=== PATIENT | male | born 1975 | race African-American/Black ===

== ENCOUNTER 2017-11-08 21:51 | Emergency (ER) | payer SELFPAY ==
[~2017-11-08] VITALS: Ht 182.9 cm; Wt 101.0 kg
[~2017-11-08 21:51] MED LIST: ERYT1O EACH EYE
[2017-11-08 22:28] VITALS: BP 131/83; PULSE 95; RESP 16; TEMP 98.4; O2SAT 98
[2017-11-09 01:02] VITALS: BP 132/83; PULSE 85; RESP 16; O2SAT 99
[2017-11-09 01:15] LABS: AUTOMATED NEUTROPHIL # 4.4 TH/MM3 (1.8-7.7); BASOPHIL # 0.1 TH/MM3 (0-0.2); BASOPHIL % 0.7 % (0.0-2.0); EOSINOPHIL # 0.1 TH/MM3 (0-0.4); EOSINOPHIL % 1.1 % (0.0-4.0); HEMATOCRIT 47.2 % (39.0-51.0); HEMOGLOBIN 15.4 GM/DL (13.0-17.0); LYMPH % 41.5 % (9.0-44.0); LYMPHOCYTE # 3.8 TH/MM3 (1.0-4.8); MEAN CELL VOLUME 88.3 FL (80.0-100.0); MEAN CORPUSCULAR HEMOGLOBIN 28.8 PG (27.0-34.0); MEAN CORPUSCULAR HGB CONC 32.7 % (32.0-36.0); MEAN PLATELET VOLUME 6.5 FL (7.0-11.0); MONOCYTE # 0.7 TH/MM3 (0-0.9); NEUT % 48.7 % (16.0-70.0); PLATELET COUNT 402 TH/MM3 (150-450); RED BLOOD COUNT 5.35 MIL/MM3 (4.50-5.90); RED CELL DISTRIBUTION WIDTH 14.5 % (11.6-17.2); WHITE BLOOD COUNT 9.1 TH/MM3 (4.0-11.0)
[2017-11-09] MEDS ORDERED: ALUMINUM/MAGNESIUM/SIMETH 30 ML CUP PO ONE (01:30)
[2017-11-09] MEDS ORDERED: LIDOCAINE VISCOUS 2% SOLN 15 ML UDC PO ONE (01:30)
[2017-11-09] MEDS ORDERED: SODIUM CHLORIDE 0.9% FLUSH 10 ML FLUSH IV FLUSH PRN (01:30)
[2017-11-09] MEDS ORDERED: ONDANSETRON ODT 4 MG TAB PO ONE (01:30)
[2017-11-09 01:48] LABS: BICARBONATE 26.2 MEQ/L (21.0-32.0); CALCIUM 9.1 MG/DL (8.5-10.1); CREATININE 1.56 MG/DL (0.60-1.30)
[2017-11-09 02:00] VITALS: BP 137/80; PULSE 76; RESP 16; O2SAT 98
[2017-11-09] MEDS ORDERED: SODIUM CHLOR 0.9% 1000 ML INJ 1,000 ML IV ONE (02:30)
[2017-11-09 04:00] VITALS: BP 140/60; PULSE 80; RESP 16; O2SAT 96
[2017-11-09] MEDS ORDERED: REGL10TA5 PO (04:33)
[2017-11-09] MEDS ORDERED: FAMO1TAB37 PO (04:33)
--- NOTE | 2017-11-09 04:33 | PD ---
HPI Chief Complaint: Abdominal Pain Time Seen by Provider: 01:06 Travel History International Travel<30 days: No Contact w/Intl Traveler<30days: No Traveled to known affect area: No History of Present Illness HPI Patient ate a bad potato that he said have mold on it and he he has severe nausea made himself vomit and comes in with severe burning in his epigastrium but he up his esophagus he did not take any medications to alleviate in the ER he is given a GI cocktail which alleviates all his symptoms. [facility] Past Medical History Diminished Hearing: No Immunizations Current: Yes Tetanus Vaccination: < 5 Years Influenza Vaccination: No Social History Alcohol Use: No Tobacco Use: Yes Substance Use: No Allergies-Medications (Allergen,Severity, Reaction): Coded Allergies: No Known Allergies (Verified Adverse Reaction, Unknown, 11/08/17) Reported Meds & Prescriptions Reported Meds & Active Scripts Active No Active Prescriptions or Reported Medications Review of Systems Except as stated in HPI: all other systems reviewed are Neg Gastrointestinal: Positive: Nausea, Vomiting Physical Exam Narrative GENERAL: epigastric pain SKIN: Warm and dry. HEAD: Atraumatic. Normocephalic. EYES: Pupils equal and round. No scleral icterus. No injection or drainage. ENT: No nasal bleeding or discharge. Mucous membranes pink and moist. NECK: Trachea midline. No JVD. CARDIOVASCULAR: Regular rate and rhythm. RESPIRATORY: No accessory muscle use. Clear to auscultation. Breath sounds equal bilaterally. GASTROINTESTINAL: Abdomen epigastric pain MUSCULOSKELETAL: Extremities without clubbing, cyanosis, or edema. No obvious deformities. NEUROLOGICAL: Awake and alert. No obvious cranial nerve deficits. Motor grossly within normal limits. Five out of 5 muscle strength in the arms and legs. Normal speech. PSYCHIATRIC: Appropriate mood and affect; insight and judgment normal. Data Data Last Documented VS Vital Signs Date Time Temp Pulse Resp B/P (MAP) Pulse Ox O2 Delivery O2 Flow Rate FiO2 11/09/17 04:00 80 16 140/60 (86) 96 Room Air 11/08/17 22:28 98.4 Orders Orders Complete Blood Count With Diff (11/09/17 01:01) Basic Metabolic Panel (Bmp) (11/09/17 01:01) Iv Access Insert/Monitor (11/09/17 01:01) Iv Access Insert/Monitor (11/09/17 01:26) Ecg Monitoring (11/09/17 01:26) Oximetry (11/09/17 01:26) Sodium Chloride 0.9% Flush (Ns Flush) (11/09/17 01:30) Al-Mag Hy-Si 40-40-4 Mg/Ml Liq (Mag-Al P (11/09/17 01:30) Lidocaine 2% Viscous (Xylocaine 2% Visco (11/09/17 01:30) Ondansetron Odt (Zofran Odt) (11/09/17 01:30) Sodium Chlor 0.9% 1000 Ml Inj (Ns 1000 M (11/09/17 02:30) Labs Laboratory Tests Test 11/09/17 01:00 White Blood Count 9.1 TH/MM3 Red Blood Count 5.35 MIL/MM3 Hemoglobin 15.4 GM/DL Hematocrit 47.2 % Mean Corpuscular Volume 88.3 FL Mean Corpuscular Hemoglobin 28.8 PG Mean Corpuscular Hemoglobin Concent 32.7 % Red Cell Distribution Width 14.5 % Platelet Count 402 TH/MM3 Mean Platelet Volume 6.5 FL Neutrophils (%) (Auto) 48.7 % Lymphocytes (%) (Auto) 41.5 % Monocytes (%) (Auto) 8.0 % Eosinophils (%) (Auto) 1.1 % Basophils (%) (Auto) 0.7 % Neutrophils # (Auto) 4.4 TH/MM3 Lymphocytes # (Auto) 3.8 TH/MM3 Monocytes # (Auto) 0.7 TH/MM3 Eosinophils # (Auto) 0.1 TH/MM3 Basophils # (Auto) 0.1 TH/MM3 CBC Comment DIFF FINAL Differential Comment Blood Urea Nitrogen 14 MG/DL Creatinine 1.56 MG/DL Random Glucose 93 MG/DL Calcium Level 9.1 MG/DL Sodium Level 139 MEQ/L Potassium Level 5.5 MEQ/L Chloride Level 107 MEQ/L Carbon Dioxide Level 26.2 MEQ/L Anion Gap 6 MEQ/L Estimat Glomerular Filtration Rate 59 ML/MIN MDM Medical Decision Making Medical Screen Exam Complete: Yes Emergency Medical Condition: Yes Medical Record Reviewed: Yes Differential Diagnosis pt has epigastric pain from eating a possible potato versus nausea causing vomit causing acid reflux versus GERD versus gallbladder disease versus pancreatitis versus other Narrative Course Patient is given a GI cocktail and a liter of fluid he feels much better when I wake him to evaluate reexamine he does as I want to go home I feel good I want to go home Diagnosis Primary Impression: GERD (gastroesophageal reflux disease) Qualified Codes: K21.9 - Gastro-esophageal reflux disease without esophagitis Patient Instructions: Gastritis (ED), General Instructions Scripts Famotidine (Pepcid) 20 Mg Tab 20 MG PO BID, #20 TAB 0 Refills Prov: Drew English MD 11/09/17 Metoclopramide (Reglan) 10 Mg Tab 10 MG PO QID, #20 TAB 0 Refills Prov: Drew English MD 11/09/17 Disposition: 01 DISCHARGE HOME Condition: Good Drew English MD Nov 09, 2017 04:33
== END 2017-11-09 04:44 | disposition home or self-care (01) ==
LOC: NEPE 21:51
DX: K21.9 Gastro-esophageal reflux disease without esophagitis (principal)
CPT/HCPCS: 80048; 85025; 99284; J7030